=== PATIENT | female | born 1980 | race Caucasian/White ===

== ENCOUNTER → 2024-06-12 | Outpatient (CLI) | payer BC, SELFPAY ==
[2024-06-12 17:20] LABS: Cardiac Risk Estimate 2.2 RATIO (3.7-5.6); Cholesterol 158 mg/dL (132-200); HDL Cholesterol 72 mg/dL (40-60); LDL Cholesterol,Calculated 67 mg/dL (0-130); Lipase 36 U/L (12-53); Triglycerides 93 mg/dL (30-150)
== END | disposition home or self-care (01) ==
PROVIDERS: PCP Family Medicine; Referring Provider Family Medicine; Visit Provider Family Medicine
DX: R10.9 Unspecified abdominal pain (principal)
CPT/HCPCS: 36415; 80061; 83690